=== PATIENT | male | born 1940 | race Caucasian/White ===

== ENCOUNTER → 2016-10-15 | Outpatient (CLI) | payer MEDICARE, OTHER ==
[~2016-10-15] MED LIST: AMLO10TA82 PO; ASP325T; ASPI-892 PO; ATEN50TA PO; ATR20T; BENZ200C25 PO; BISO1TAB39; CHOL200014 PO; CLOP75TA PO; FENO145T2; FENO160T PO; FENOFIBRATE PO; GLIM2TAB PO; INDO50CA PO; LOSA100T28 PO; METF-380 PO; MTF500T; NF-ALI300T PO; NFNEB10T PO; NYST1000; OLME40TA14; OMG1KC PO; ROSU5TAB PO; SITA1TAB6 PO; SMV20T PO; TERA5CAP10 PO; TRZS2T; WRF5T; tekturna
--- OUTSIDE RECORDS SUMMARY | 2016-10-15 14:27 | XMS REPORT | Continuity of Care Document ---
Author Author [facility] Organization [facility] Address Unknown Phone Unavailable Care Team Providers Care Silo Worker Name Role Phone STEPHEN PEACOCK MD PCP Insurance Providers Payer Name Policy Number Subscriber Name Relationship Wps Medicare [id number] Mariangel Felder 18 Self / Same As Patient [facility] [place] [id number] Mariangel Felder 18 Self / Same As Patient Advance Directives Directive Response Recorded Date/Time Advance Directives No 07/06/16 3:06pm Health Care Power of Sericulture Teacher Sharri FELDER 07/06/16 3:06pm Organ Donor No 07/06/16 3:06pm Resuscitation Status Full Code 07/06/16 3:06pm Problems No problem information available. Medications Current Home Medications Medication Dose Units Route Directions Days/Qty Instructions Start Date Sitagliptin Phos/Metformin Hcl 1 Each 50 - 1000 Mg Oral Daily Nebivolol Hcl 10 Mg 10 Mg Oral Daily 02/17/10 Clopidogrel Bisulfate 75 Mg 75 Mg Oral Daily 02/17/10 Aspirin 81 Mg 81 Mg Oral Daily 02/17/10 Fish Oil 1,000 Mg 1,000 Mg Oral Twice A Day 02/17/10 Indomethacin 50 Mg 50 Mg Oral As Needed as needed for Gout Pain 07/20 Metformin Hcl (Glucophage) 1,000 Mg 1,000 Mg Oral Bedtime 04/25/12 Amlodipine Besylate (Norvasc 10 Mg) 10 Mg 10 Mg Oral Daily 04/25/12 Rosuvastatin Calcium 5 Mg 5 Mg Oral Bedtime 07/02/16 Glimepiride 2 Mg 2 Mg Oral Daily 07/02/16 Cholecalciferol (Vitamin D3) 2,000 Unit 2,000 Unit Oral Daily Losartan Potassium 100 Mg 100 Mg Oral Daily 07/02/16 Past Home Medications Medication Directions Ordered Status Metformin Hcl (Glucophage) 500 Mg Tablet, 02/23/07 Discontinued Atorvastatin Calcium 20 Mg Tablet, 02/23/07 Discontinued [Tekturna] , 02/23/07 Discontinued Terazosin Hcl 2 Mg Tab, 02/23/07 Discontinued Olmesartan 40 Mg Tablet, 02/23/07 Discontinued Bisoprolol Fumarate/Hctz 1 Tab Tablet, 02/23/07 Discontinued Aspirin 325 Mg Tablet, 02/23/07 Discontinued Warfarin Sodium 5 Mg Tablet, 02/23/07 Discontinued Aliskiren Hemifumarate 300 Mg Tab, 300 Mg Oral As Needed 02/17/10 Discontinued Fenofibrate 145 Mg Tablet, 02/17/10 Discontinued Nystatin 5 Ml Susp, 02/17/10 Discontinued Terazosin Hcl 5 Mg Capsule, 5 Mg Oral Daily 02/17/10 Discontinued Simvastatin 20 Mg Tab, 20 Mg Oral Daily 04/25/12 Discontinued Fenofibrate 160 Mg Tablet, 160 Mg Oral Daily 04/25/12 Discontinued [Fenofibrate] , 180 Mg Oral Daily 05/11/12 Discontinued Benzonatate (Tessalon Perles) 200 Mg Capsule, 1 Each Oral Q8hr Prn 05/11/12 Discontinued Social History Social History Problem Response Recorded Date/Time Recent Foreign Travel No 07/06/2016 3:11pm Recent Infectious Disease Exposure No 07/06/2016 3:11pm Smoking Status Former Smoker 07/06/2016 3:09pm Type Used Cigarettes 07/06/2016 6:34pm Query Response Start Date Stop Date Smoking Status Former Smoker Hospital Discharge Instructions Patient Instructions Physician Instructions New, Converted or Re-Newed RX: Other Plan of Care/Instructions/FU: ffollow-up with Dr. Peacock to evaluate Cough Activity as Tolerated: Yes Discharge Diet: ADA Diet Care Plan Patient Instructions:: ffollow-up with Dr. Peacock to evaluateCough Plan of Care Discharge Date 07/06/16 6:30pm Instructions/Education Provided EGD-ESOPHAGOGASTRODUODENOSCOPY Prescriptions See Medication Section Functional Status No functional status results. Allergies, Adverse Reactions, Alerts Allergen Type Severity Reaction Status Last Updated Enalapril Allergy Unknown cough Active 07/02/16 Immunizations No immunization records. Vital Signs Acute Vital Signs Vital Response Date/Time Temperature (Fahrenheit) 97.9 degrees F (97.6 - 99.5) 07/06/2016 6:32pm Temperature (Calculated Celsius) 36.68790 degrees C (36.4 - 37.5) 07/06/2016 6:32pm Temperature Source Tympanic 07/06/2016 6:32pm Pulse Rate (adult) 60 bpm (60 - 90) 07/06/2016 6:32pm Respiratory Rate 16 bpm (12 - 24) 07/06/2016 6:32pm O2 Sat by Pulse Oximetry 92 % (88 - 100) 07/06/2016 6:32pm Blood Pressure 111/77 mm Hg 07/06/2016 6:32pm Pain Numeric Pain Scale 0-No Pain 07/06/2016 6:32pm Pain Intensity 0 07/06/2016 6:20pm Height (Feet) 5 feet 07/06/2016 3:12pm Height (Inches) 9.00 inches 07/06/2016 3:12pm Height (Calculated Centimeters) 175.493863 cm 07/06/2016 3:12pm Weight (Pounds) 245 pounds 07/06/2016 3:12pm Weight (Ounces) 0.0 oz 07/06/2016 3:12pm Weight (Calculated Grams) 349106.13 gm 07/06/2016 3:12pm Weight (Calculated Kilograms) 111.061216 kilograms 07/06/2016 3:12pm Calculated BMI 36.2 07/06/2016 3:12pm Results Laboratory Results Test Name Result Units Flags Reference Collection Date/Time Result Date/ Time Comments Glucometer 119 MG/DL H 70-110 07/06/2016 4:16pm 07/06/2016 4:37pm Procedures Procedure Status Date Provider(s) Esophagogastroduodenoscopy (EGD) Completed 07/06/16 ELBA SCHMITZ MD Encounters Encounter Location Arrival/Admit Date Discharge/Depart Date Attending Provider Departed [facility] 07/06/16 2:34pm 6:30pm ELBA SCHMITZ MD Departed Clinic [facility] 07/02/16 10:30am 07/02/16 11: 11am ELBA SCHMITZ MD
--- NOTE | 2016-10-18 15:44 | ECHOCARDIOGRAPHY REPORT ---
PROCEDURE PHYSICIAN: GIOVANI JUAREZ DATE OF PROCEDURE: 10/15/2016 TWO DIMENSIONAL ECHOCARDIOGRAM REPORT PRIMARY PHYSICIAN: OTHER PHYSICIAN: REFERRING PHYSICIAN: Dr. Peacock ORDERING PHYSICIAN: INDICATION FOR THE PROCEDURE: Coronary artery disease. MEASUREMENTS DERIVED VALUES LV DIAMETER (LAX) NORMALS NORMALS Diastolic 5.8 (3.6-5.2) Eject. Fract. 60% (60%+/-6%) Systolic (2.3-3.9) Diastolic Vol. % Shortening (0.22-0.42) Systolic Vol. Aortic Root IVS THICKNESS Diastolic 1.1 (0.6-1.1) LVPW THICKNESS Diastolic 1.1 (0.6-1.1) LA DIAMETER Systolic 4.6 (2.1-3.7) FINDINGS: 1. Technical quality is good. 2. The left ventricle is normal in size with normal contractility. Systolic function appeared to be normal. Estimated ejection fraction 60%. 3. The left atrium is mildly dilated. No clot or thrombus were seen within the left atrium. 4. The right atrium and right ventricle are normal in size. No clot or thrombus were seen within the right side. 5. Mitral valve is normal in morphology with mild mitral regurgitation noted by color Doppler flow. No mitral valve prolapse. No mitral valve stenosis. 6. Aortic valve is trileaflet with normal opening and closing pattern. No significant aortic stenosis or regurgitation was seen. 7. Tricuspid valve is normal in morphology with mild tricuspid regurgitation noted by color Doppler flow. Doppler across tricuspid valve estimated pulmonary artery pressure of 23+ right atrial pressure. 8. Pulmonic valve is functioning normally. 9. No pericardial effusion. IN CONCLUSION: 1. Normal left ventricular size and systolic function. Estimated ejection fraction 60%. 2. Mildly dilated left atrium. 3. Mild mitral and tricuspid regurgitation. 4. Estimated pulmonary artery pressure of 30 mmHg. Job ID: [id number] Dictated Date: 10/17/2016 08:40:46 Tracing Lathe Set Up Operator Date: 10/18/2016 15:41:34 / dev
== END ==
LOC: CARD 14:24
PROVIDERS: ATTEND Internal Medicine Cardiovascular Disease
DX: I25.10 Atherosclerotic heart disease of native coronary artery without angina pectoris (principal); I10 Essential (primary) hypertension; R06.02 Shortness of breath; R05 Cough
CPT/HCPCS: 93306

== ENCOUNTER → 2016-10-21 | Outpatient (CLI) | payer MEDICARE, OTHER ==
[~2016-10-21] VITALS: Ht 175.3 cm; Wt 113.4 kg
[~2016-10-21] MED LIST changes: +CATHETER FLUSH 10 ML SYR IV PRN; +REGADENOSON 0.4 MG/5 ML SYR (LEXISCAN) IV ONE
--- OUTSIDE RECORDS SUMMARY | 2016-10-21 07:26 | XMS REPORT | Continuity of Care Document ---
Author Author [facility] Organization [facility] Address Unknown Phone Unavailable Care Team Providers Care Pacs Administrator Name Role Phone STEPHEN PEACOCK MD PCP Insurance Providers Payer Name Policy Number Subscriber Name Relationship Wps Medicare [id number] Mariangel Felder 18 Self / Same As Patient [facility] [place] [id number] Mariangel Felder 18 Self / Same As Patient Advance Directives Directive Response Recorded Date/Time Advance Directives No 07/06/16 3:06pm Health Care Power of Hvac Project Manager Sharri FELDER 07/06/16 3:06pm Organ Donor No [...] - 99.5) 07/06/2016 6:32pm Temperature (Calculated Celsius) 36.90673 degrees C (36.4 - 37.5) 07/06/2016 6:32pm [...] 9.00 inches 07/06/2016 3:12pm Height (Calculated Centimeters) 175.463572 cm 07/06/2016 3:12pm Weight (Pounds) 245 pounds 07/06/2016 3:12pm Weight (Ounces) 0.0 oz 07/06/2016 3:12pm Weight (Calculated Grams) 288721.13 gm 07/06/2016 3:12pm Weight (Calculated Kilograms) 111.491545 kilograms 07/06/2016 3:12pm Calculated BMI 36.2 07/06/2016 3:12pm Results Laboratory Results Test Name Result Units Flags Reference Collection Date/Time Result Date/ Time Comments Glucometer 119 MG/DL H 70-110 07/06/2016 4:16pm 07/06/2016 4:37pm Procedures Procedure Status Date Provider(s) Esophagogastroduodenoscopy (EGD) Completed 07/06/16 ELBA SCHMITZ MD Encounters Encounter Location Arrival/Admit Date Discharge/Depart Date Attending Provider Departed [facility] 07/06/16 2:34pm 6:30pm ELBA SCHMITZ MD Departed Clinic [facility] 07/02/16 10:30am 07/02/16 11: 11am ELBA SCHMITZ MD
[2016-10-21 09:01] VITALS: BP 144/59
[2016-10-21 09:04] VITALS: BP 117/83
--- NOTE | 2016-10-22 08:44 | STRESS TEST ---
PROCEDURE PHYSICIAN: GIOVANI JUAREZ DATE OF PROCEDURE: 10/21/2016 LEXISCAN MYOVIEW STRESS TEST REPORT: REFERRING PHYSICIAN: Dr. Peacock INDICATION: Coronary artery disease. BASELINE HEART RATE: 60 BASELINE BLOOD PRESSURE: 144/59 BASELINE EKG: Sinus rhythm with poor R wave progression in anterior leads. IN SUMMARY: The patient was injected with 10.61 mCi of technetium 99 Myoview and the resting images were obtained. Then the patient received 0.4 mg of Lexiscan followed by 31 mCi of technetium 99 Myoview. Throughout the test, there were no EKG changes. The resting and stress images were reviewed and compared in the short axis, horizontal long axis, and vertical long axis views. Review of the images showed diaphragmatic attenuation affecting the quality of the images. Mild decreased uptake at the inferoapical segment and lateral segment of the inferoapical wall. SSS is 4, SDS 4, TID value 1.08. On the gated images, the left ventricle appeared to be normal size with normal contractility. Calculated ejection fraction 58%. IN CONCLUSION: 1. The patient tolerated Lexiscan well. 2. Diaphragmatic attenuation with typical male pattern. No significant ischemia or infarction on SPECT images. 3. Normal left ventricular size with normal contractility. Calculated ejection fraction 58%. Job ID: [id number] Dictated Date: 10/21/2016 16:10:44 Encoding Machine Operator Date: 10/22/2016 08:40:44 / dev
== END ==
LOC: CARD 07:23
PROVIDERS: ATTEND Internal Medicine Cardiovascular Disease
DX: I25.10 Atherosclerotic heart disease of native coronary artery without angina pectoris (principal); I10 Essential (primary) hypertension; R06.02 Shortness of breath; R05 Cough
CPT/HCPCS: 78452; 93017

== ENCOUNTER 2016-10-28 06:40 | Day surgery (SDC) | payer MEDICARE, OTHER ==
[~2016-10-28] VITALS: Ht 177.8 cm; Wt 106.6 kg
[2016-10-28] VITALS (14 sets, daily range): BP systolic 122–148; BP diastolic 68–88
[~2016-10-28 06:40] MED LIST changes: -ATEN50TA PO; -CATHETER FLUSH 10 ML SYR IV PRN; -REGADENOSON 0.4 MG/5 ML SYR (LEXISCAN) IV ONE
--- OUTSIDE RECORDS SUMMARY | 2016-10-28 06:44 | XMS REPORT | Continuity of Care Document ---
Author Author [facility] Organization [facility] Address Unknown Phone Unavailable Care Team Providers Care Piggyback Clerk Name Role Phone STEPHEN PEACOCK MD PCP Insurance Providers Payer Name Policy Number Subscriber Name Relationship Wps Medicare [id number] Mariangel Felder 18 Self / Same As Patient [facility] [place] [id number] Mariangel Felder 18 Self / Same As Patient Advance Directives Directive Response Recorded Date/Time Advance Directives No 07/06/16 3:06pm Health Care Power of Batch Unloader Sharri FELDER 07/06/16 3:06pm Organ Donor No [...] - 99.5) 07/06/2016 6:32pm Temperature (Calculated Celsius) 36.82996 degrees C (36.4 - 37.5) 07/06/2016 6:32pm [...] 9.00 inches 07/06/2016 3:12pm Height (Calculated Centimeters) 175.084330 cm 07/06/2016 3:12pm Weight (Pounds) 245 pounds 07/06/2016 3:12pm Weight (Ounces) 0.0 oz 07/06/2016 3:12pm Weight (Calculated Grams) 813990.13 gm 07/06/2016 3:12pm Weight (Calculated Kilograms) 111.681650 kilograms 07/06/2016 3:12pm Calculated BMI 36.2 07/06/2016 3:12pm Results Laboratory Results Test Name Result Units Flags Reference Collection Date/Time Result Date/ Time Comments Glucometer 119 MG/DL H 70-110 07/06/2016 4:16pm 07/06/2016 4:37pm Procedures Procedure Status Date Provider(s) Esophagogastroduodenoscopy (EGD) Completed 07/06/16 ELBA SCHMITZ MD Encounters Encounter Location Arrival/Admit Date Discharge/Depart Date Attending Provider Departed [facility] 07/06/16 2:34pm 6:30pm ELBA SCHMITZ MD Departed Clinic [facility] 07/02/16 10:30am 07/02/16 11: 11am ELBA SCHMITZ MD
--- OUTSIDE RECORDS SUMMARY | 2016-10-28 06:44 | XMS REPORT | Continuity of Care Document ---
Author Author [facility] Organization [facility] Address Unknown Phone Unavailable Care Team Providers Care Loan Documents Closer Name Role Phone STEPHEN PEACOCK MD PCP Insurance Providers Payer Name Policy Number Subscriber Name Relationship Wps Medicare [id number] Mariangel Felder 18 Self / Same As Patient [facility] [place] [id number] Mariangel Felder 18 Self / Same As Patient Advance Directives Directive Response Recorded Date/Time Advance Directives No 07/06/16 3:06pm Health Care Power of Herpetologist Sharri FELDER 07/06/16 3:06pm Organ Donor No [...] - 99.5) 07/06/2016 6:32pm Temperature (Calculated Celsius) 36.15938 degrees C (36.4 - 37.5) 07/06/2016 6:32pm [...] 9.00 inches 07/06/2016 3:12pm Height (Calculated Centimeters) 175.552802 cm 07/06/2016 3:12pm Weight (Pounds) 245 pounds 07/06/2016 3:12pm Weight (Ounces) 0.0 oz 07/06/2016 3:12pm Weight (Calculated Grams) 753409.13 gm 07/06/2016 3:12pm Weight (Calculated Kilograms) 111.808613 kilograms 07/06/2016 3:12pm Calculated BMI 36.2 07/06/2016 3:12pm Results Laboratory Results Test Name Result Units Flags Reference Collection Date/Time Result Date/ Time Comments Glucometer 119 MG/DL H 70-110 07/06/2016 4:16pm 07/06/2016 4:37pm Procedures Procedure Status Date Provider(s) Esophagogastroduodenoscopy (EGD) Completed 07/06/16 ELBA SCHMITZ MD Encounters Encounter Location Arrival/Admit Date Discharge/Depart Date Attending Provider Departed [facility] 07/06/16 2:34pm 6:30pm ELBA SCHMITZ MD Departed Clinic [facility] 07/02/16 10:30am 07/02/16 11: 11am ELBA SCHMITZ MD
[2016-10-28] MEDS ORDERED: LIDOCAINE 1% INJ 20 ML (XYLOCAINE) VIAL ONE (06:48)
[2016-10-28] MEDS ORDERED: HEParin (CATH LAB) 2,000 ML IV ONE (06:48)
[2016-10-28] MEDS ORDERED: NS IV 1000 ML 1,000 ML ONE (06:48)
[2016-10-28] MEDS ORDERED: NS IV 1000 ML 1,000 ML IV SCH (06:59)
[2016-10-28 07:22] LABS: MEAN PLATELET VOLUME 9.3 FL (7.4-10.4); RED BLOOD COUNT 4.57 10^6/uL (4.35-5.85); RED CELL DISTRIBUTION WIDTH 13.2 % (10.0-14.5); WHITE BLOOD COUNT 8.1 10^3/uL (4.3-11.0)
[2016-10-28] MEDS ORDERED: ATEN50TA PO (07:36)
[2016-10-28 07:42] LABS: ALBUMIN 4.1 G/DL (3.2-4.5); BILIRUBIN,TOTAL 0.5 MG/DL (0.1-1.0); CALCIUM 9.3 MG/DL (8.5-10.1); CREATININE SERUM 1.88 MG/DL (0.60-1.30); POTASSIUM 4.6 MMOL/L (3.6-5.0); TOTAL PROTEIN 7.6 G/DL (6.4-8.2)
--- NOTE | 2016-10-28 07:44 | Diagnostic Imaging Report ---
INDICATION: Renovascular hypertension. Portable chest at 07:32 a.m. FINDINGS: Heart size and pulmonary vascularity are normal. Lungs are clear. There are no effusions or pneumothoraces. IMPRESSION: Negative chest. Dictated by: Dictated on workstation # [id number]
[2016-10-28] MEDS ORDERED: fentaNYL INJECTION 100 MCG/2 ML AMP ONE (07:54)
[2016-10-28] MEDS ORDERED: MIDAZOLAM 5 MG/5 ML (VERSED) VIAL ONE (07:54)
--- NOTE | 2016-10-28 08:17 | Cardiac Procedure Note-CS/ASA ---
Pre-Procedure Note Pre-Op Procedure Note H&P Reviewed The H&P was reviewed, patient examined and no changes noted. Date H&P Reviewed: Oct 28, 2016 Time H&P Reviewed: 08:17 Conscious Sedation Pre-Proced Time Reviewed: 08:17 ASA Class: 3 Airway Mallampati Classification: ([place] appropriate class) I. II. III, IV Lungs Heart ASA score ASA 1: a normal healthy patient ASA 2: a patient with a mild systemic disease (mid diabetes, controlled hypertension, obesity x ASA 3: a patient with a severe systemic disease that limits activity (angina , COPD, prior Myocardial infarction) ASA 4: a patient with an incapacitating disease that is a constant threat to life (CHF, renal failure) ASA 5: a moribund patient not expected to survive 24 hrs. (ruptured aneurysm) ASA 6: a declared brain patient whose organs are being harvested. For emergent operations, add the letter E after the classification Grade 3 Sedation Plan: Analgesia, Amnesia, Plan communicated to team members, Discussed options with patient/fam, Discussed risks with patient/fam Note The patient is an appropriate candidate to undergo the planned procedure, sedation, and anesthesia. The patient immediately re-assessed prior to indication. GIOVANI JUAREZ MD Oct 28, 2016 08:17
[2016-10-28] MEDS ORDERED: HEParin 1000 UNIT/ML (10ML VIAL) FOR BOLUS ONE (08:30)
[2016-10-28] MEDS ORDERED: ASPIRIN 325 MG (5 GR) TABLET ONE (09:04)
[2016-10-28] MEDS ORDERED: CLOPIDOGREL 300 MG (PLAVIX) TABLET PO ONE (09:04)
[2016-10-28] MEDS ORDERED: INDOMETHACIN 50 MG PO PRN (09:15)
[2016-10-28] MEDS ORDERED: PATIENT MAY USE OWN MEDS, ALL PO SCH (09:15)
[2016-10-28] MEDS: NS IV 1000 ML 1,000 ML IV SCH ×2 (09:30→13:39)
--- NOTE | 2016-10-28 13:25 | CARDIAC CATHETERIZATION ---
PROCEDURE PHYSICIAN: GIOVANI JUAREZ DATE OF PROCEDURE: 10/28/2016 REFERRING PHYSICIAN: Dr. Amarilys Peacock BRIEF HISTORY: Mr. Herbert is a 76-year-old gentleman with a history of coronary artery disease, abdominal aortic aneurysm, severe hypertension. He had a CT angiogram of the abdominal aorta, which suggests 70 to 80% left renal artery stenosis. He was scheduled for a renal angiogram, possible angioplasty. PROCEDURE NOTE: After explaining the procedure to the patient, all pros and cons were explained. All questions were answered. The patient signed a consent, then he was placed on the cardiac catheterization laboratory. The right groin was prepped in a sterile fashion. Local anesthesia applied to right groin. 6-Khmer sheath was placed in the right femoral artery. I started with [facility] guide and advanced to the left renal artery, angiogram was done. Then it was turned to the right renal artery. Intubated the right renal artery and angiogram was done. The right renal artery has mild disease. The left renal artery has eccentric lesion of 70 to 80% stenosis. I decided with giving the patient 6000 units of heparin, then BMW wire was advanced. Then a Proctor balloon 5 x 20 x 150, advanced to the left renal artery, inflated to 5.0. After multiple inflations, there was a sliding of balloon during inflation after achieving adequate inflation. The artery showed improvement. I decided to proceed with placement of bare-metal stent. I used Express SD 6 x 14 x 150 placed carefully at the ostium of the left renal artery inflated. After inflating the balloon the stent had slid slightly deeper into the left renal artery; still had covering partially the area of the lesion. I reintroduced the balloon and inflated to 6.1 mm at the ostium of the left renal artery. Angiogram showed excellent results. At the end of the procedure, sheath was removed. Mynx device deployed. Hemostasis achieved. FINDINGS: 1. Right renal artery has mild disease, nonobstructive disease. 2. Left renal artery has eccentric plaque of 70 to 80% stenosis. Successful balloon angioplasty then deployment of Express SD stent 6 x 14 x 150. The stent had slid slightly deeper into the left renal artery still partially covering the lesion. Balloon angioplasty was performed the ostium of the left renal artery. Angiogram showed excellent results with no residual stenosis. CONCLUSION: 1. Severe 70 to 80% left renal artery stenosis with eccentric lesion. Successful balloon angioplasty then stent deployment using 6 x 4 x 15 Express SD stent with excellent results. 2. Mild right renal artery stenosis, nonobstructive disease. DISCUSSION AND RECOMMENDATION: The patient will continue on aspirin and Plavix continue on current medication and monitor renal function. Job ID: [id number] Dictated Date: 10/28/2016 09:15:36 Inspector Set Up And Lay Out Date: 10/28/2016 13:09:28 / sindhu PAL
--- NOTE | 2016-10-28 13:29 | DISCHARGE SUMMARY ---
PROCEDURE PHYSICIAN: GIOVANI JUAREZ DATE OF PROCEDURE: 10/28/2016 REFERRING PHYSICIAN: Dr. Amarilys Peacock BRIEF HISTORY: Mr. Herbert is a 76-year-old gentleman with a history of coronary artery disease, abdominal aortic aneurysm, severe hypertension. He had a CT angiogram of the abdominal aorta, which suggests 70 to 80% left renal artery stenosis. He was scheduled for a renal angiogram, possible angioplasty. PROCEDURE NOTE: After explaining the procedure to the patient, all pros and cons were explained. All questions were answered. The patient signed a consent, then he was placed on the cardiac catheterization laboratory. The right groin was prepped in a sterile fashion. Local anesthesia applied to right groin. 6-Japanese sheath was placed in the right femoral artery. I started with [facility] guide and advanced to the left renal artery, angiogram was done. Then it was turned to the right renal artery. Intubated the right renal artery and angiogram was done. The right renal artery has mild disease. The left renal artery has eccentric lesion of 70 to 80% stenosis. I decided with giving the patient 6000 units of heparin, then BMW wire was advanced. Then a Proctor balloon 5 x 20 x 150, advanced to the left renal artery, inflated to 5.0. After multiple inflations, there was a sliding of balloon during inflation after achieving adequate inflation. The artery showed improvement. I decided to proceed with placement of bare-metal stent. I used Express SD 6 x 14 x 150 placed carefully at the ostium of the left renal artery inflated. After inflating the balloon the stent had slid slightly deeper into the left renal artery; still had covering partially the area of the lesion. I reintroduced the balloon and inflated to 6.1 mm at the ostium of the left renal artery. Angiogram showed excellent results. At the end of the procedure, sheath was removed. Mynx device deployed. Hemostasis achieved. FINDINGS: 1. Right renal artery has mild disease, nonobstructive disease. 2. Left renal artery has eccentric plaque of 70 to 80% stenosis. Successful balloon angioplasty then deployment of Express SD stent 6 x 14 x 150. The stent had slid slightly deeper into the left renal artery still partially covering the lesion. Balloon angioplasty was performed the ostium of the left renal artery. Angiogram showed excellent results with no residual stenosis. CONCLUSION: 1. Severe 70 to 80% left renal artery stenosis with eccentric lesion. Successful balloon angioplasty then stent deployment using 6 x 4 x 15 Express SD stent with excellent results. 2. Mild right renal artery stenosis, nonobstructive disease. DISCUSSION AND RECOMMENDATION: The patient will continue on aspirin and Plavix continue on current medication and monitor renal function. FINAL DIAGNOSIS: 1. Coronary artery disease. 2. Renal artery stenosis. 3. Hypertension. 4. Abdominal aortic aneurysm. Job ID: [id number] Dictated Date: 10/28/2016 09:15:36 Collar Fuser Date: 10/28/2016 13:24:18/sindhu
[2016-10-28] MEDS ORDERED: ROSUVASTATIN 5 MG (CRESTOR) TABLET PO SCH (21:00)
[2016-10-28] MEDS ORDERED: OMEGA 3 (FISH OIL) 1000 MG CAP PO SCH (21:00)
[2016-10-29] VITALS: BP 115/74
[2016-10-29 04:00] VITALS: BP 126/68
[2016-10-29] MEDS: NS IV 1000 ML 1,000 ML IV SCH (04:40)
[2016-10-29 04:49] LABS: MEAN PLATELET VOLUME 9.4 FL (7.4-10.4); RED BLOOD COUNT 4.29 10^6/uL (4.35-5.85); RED CELL DISTRIBUTION WIDTH 13.1 % (10.0-14.5)
[2016-10-29 05:00] LABS: CALCIUM 8.8 MG/DL (8.5-10.1); CREATININE SERUM 1.55 MG/DL (0.60-1.30); POTASSIUM 4.3 MMOL/L (3.6-5.0)
[2016-10-29] MEDS ORDERED: GLIMEPIRIDE 2 MG (AMARYL) TAB PO SCH (06:30)
[2016-10-29 08:00] VITALS: BP 118/62
--- NOTE | 2016-10-29 08:17 | Discharge Inst-Post CATH ---
Discharge Inst-CATH Post Cardiac Cath D/C Inst Follow Up/Plan Hold metformin for [address] Johnston's office in 2-4 weeks CARDIAC CATH DISCHARGE INSTRUCTIONS *Hold Metformin for 48 hours post heart cath. ACTIVITY * Go Home directly and rest. * Limit activity of the leg (or wrist if it was used) for 7 days including aerobics, swimming, jogging, bicycling, etc. * Restrict stair-climbing for 7 days if possible, if not, climb up with your non -cath leg, then bring together on the same step. * Avoid lifting, pushing, pulling or excessive movement of the affected extremity for 7 days. * Customary sexual activity may be resumed after 2 days-use caution not to use a position that strains or causes pain to the affected extremity. * No driving for 24 hours. * NO SMOKING. * Avoid straining for bowel movements for 7 days. * Gentle walking on level ground is allowed. * Returning to work will depend on the type of procedure and the results. Your doctor will discuss this with you. CALL YOUR DOCTOR FOR ANY OF THE FOLLOWING: *If bleeding from the puncture site occurs- Apply gentle pressure to site with clean cloth and call your doctor or EMS. * If a knot or lump forms under the skin, increases in size, or causes pain. * If bruising appears to be worsening or moving further down your leg instead of disappearing. * Temperature above 101 F. CARE OF YOUR GROIN INCISION; * Bruising or purple discoloration of the skin near the puncture site is common. * You may shower only, no bathtub bathing for 5 days. Be careful to avoid slipping as your leg may feel stiff. * If a closure device was used on your femoral artery, please see the attached guide regarding care of the device and your leg. * REMOVE the dressing from your groin the next day after your procedure in the shower. CARE OF YOUR WRIST INCISION; * Bruising or purple discoloration of the skin near the puncture site is common. * You may shower. * DO NOT submerge wrist. * Remove dressing in 24 hours. GIOVANI JOHNSTON MD Oct 29, 2016 08:17
--- NOTE | 2016-10-29 08:18 | Cardiology Progress Note ---
Subjective Subjective/Events-last exam Patient is feeling well, groin is healing well, blood pressure under good control Review of Systems General: No Chills, No Night Sweats, No Fatigue, No Malaise, No Appetite, No Other HEENT: No Head Aches, No Visual Changes, No Eye Pain, No Ear Pain, No Dysphasia , No Sinus Congestion, No Post Nasal Drip, No Sore Throat, No Other Pulmonary: No Dyspnea, No Cough, No Pleuritic Chest Pain, No Other Cardiovascular: No: Chest Pain, Edema, Lt Headedness, Orthopnea, Other, Palpitations, Paroxysmal Noc. Dyspnea Objective-Cardiology Exam Last Set of Vital Signs Vital Signs 10/29/16 04:00 Temp 99.1 Pulse 60 Resp 18 B/P 126/68 Pulse Ox 94 O2 Delivery Room Air Capillary Refill : Less Than 3 Seconds I&O Intake and Output 10/29/16 00:00 Intake Total 2650 ml Output Total 475 ml Balance 2175 ml Intake Oral 650 ml IV Total 2000 ml Output Urine Total 475 ml # Voids 2 General: Alert, Oriented X3, Cooperative HEENT: Atraumatic, PERRLA Neck: Supple, No JVD, No Thyromegaly Lungs: Clear to Auscultation, Normal Air Movement Heart: Regular Rate, Normal S1, Normal S2, No Murmurs Abdomen: Normal Bowel Sounds, Soft, No Tenderness, No Hepatosplenomegaly, No Masses Extremities: No Clubbing, No Cyanosis, No Edema, Normal Pulses, No Tenderness/ Swelling Skin: No Rashes, No Breakdown, No Significant Lesion Neuro: Normal Gait, Normal Speech, Strength at 5/5 X4 Ext, Normal Tone, Sensation Intact Psych/Mental Status: Mental Status NL, Mood NL Results Lab Laboratory Tests 10/29/16 04:12 A/P-Cardiology Admission Diagnosis Renal artery stenosis Hypertension Abdominal aortic aneurysm Coronary artery disease Assessment/Plan Renal artery stenosis status post renal antiplastic in-stent Hypertension, better control Abdominal aortic aneurysm, continue to monitor Coronary artery disease Chronic renal insufficiency, any functions are slightly better Diabetes mellitus GIOVANI JUAREZ MD Oct 29, 2016 08:18
[2016-10-29] MEDS ORDERED: amLODIPine 10 MG (NORVASC) TAB PO SCH (09:00)
[2016-10-29] MEDS ORDERED: ASPIRIN E.C. 81 MG (ECOTRIN) TAB PO SCH ×2 (09:00)
[2016-10-29] MEDS ORDERED: Cholecalciferol (Vitamin D3) 2,000 UNIT PO SCH (09:00)
[2016-10-29] MEDS ORDERED: Losartan Potassium 100 MG PO SCH (09:00)
[2016-10-29] MEDS ORDERED: ATENOLOL 50 MG (TENORMIN) TAB PO SCH (09:00)
[2016-10-29] MEDS ORDERED: CLOPIDOGREL 75 MG (PLAVIX) TABLET PO SCH ×2 (09:00)
== END 2016-10-29 09:30 | disposition home or self-care (01) ==
LOC: CATH 06:40 → ICU 09:30 → CATH 10-29 09:30
PROVIDERS: ATTEND Internal Medicine Cardiovascular Disease
DX: I70.1 Atherosclerosis of renal artery (principal); I71.4 Abdominal aortic aneurysm, without rupture; I10 Essential (primary) hypertension; I25.10 Atherosclerotic heart disease of native coronary artery without angina pectoris; E11.9 Type 2 diabetes mellitus without complications; Q21.1 Atrial septal defect; J44.9 Chronic obstructive pulmonary disease, unspecified; G47.33 Obstructive sleep apnea (adult) (pediatric); Z79.899 Other long term (current) drug therapy; Z86.73 Personal history of transient ischemic attack (TIA), and cerebral infarction without residual deficits
CPT/HCPCS: 36252; 36415; 37236; 71010; 80048; 80053; 80061; 85027; 85610; 85730; 87081; 93005

== ENCOUNTER → 2017-04-28 | Outpatient (CLI) | payer MEDICARE, OTHER ==
[~2017-04-28] MED LIST changes: +ATEN50TA PO; +BARIUM SUSPENSION 105% (LIQUID POLIBAR PLUS) 240 ML/DOSE PO ONE; +BARIUM SUSPENSION 60% (LIQUID EZ PAQUE) 240 ML DOSE PO ONE
--- NOTE | 2017-04-29 14:28 | RADIOLOGY REPORT ---
NAME: NIKIA FELDER [facility] REC#: [id number] PT STATUS: REG CLI : 1940 PHYSICIAN: STEPHEN REYES MD ADMIT DATE: 04/28/17/RAD CORRECTED Signed Date of Exam:04/28/17 CHEST 1 VIEW, AP/PA ONLY EXAMINATION: Equipment Inspector for Barium swallow study. INDICATION: Dysphagia. Patient describes choking with liquids in the throat area. FINDINGS: PA chest radiograph was performed and demonstrated interstitial thickening that appears chronic with no focal infiltrate. Prominent right pericardial fat pad is suggested similar to the 10/28/2016 exam. The heart size is mildly enlarged. No effusion or pneumothorax. At this time, based on patient focusing complaints in the throat area, a barium swallow was not performed to avoid the risk of aspiration and a modified barium swallow is suggested. IMPRESSION: Prominent cardiac size. No acute process. Dictated by: Dictated on workstation # [id number] Dict: 04/28/17 1126 Trans: 04/29/17 1148 [facility] [id number] Interpreted by: RAJI HAMMOND MD Electronically signed by: RAJI HAMMOND MD 04/29/17 1148 MTDD
== END ==
LOC: RAD 10:02
PROVIDERS: ATTEND Family Medicine
DX: R13.12 Dysphagia, oropharyngeal phase (principal); I51.7 Cardiomegaly
CPT/HCPCS: 71010; 74220

== ENCOUNTER → 2017-04-30 | Outpatient (CLI) | payer MEDICARE, OTHER ==
[~2017-04-30] MED LIST changes: -BARIUM SUSPENSION 105% (LIQUID POLIBAR PLUS) 240 ML/DOSE PO ONE; -BARIUM SUSPENSION 60% (LIQUID EZ PAQUE) 240 ML DOSE PO ONE
--- NOTE | 2017-04-30 11:54 | Diagnostic Imaging Report ---
EXAMINATION: Modified barium swallow. Indication: Dysphagia Different consistencies of fluid and food was given mixed with barium and swallowing was visualized under fluoroscopy. FLUOROSCOPY TIME: 46 seconds FINDINGS: No aspiration seen. IMPRESSION: No aspiration seen. Please refer to speech therapist's report for additional details . Dictated by: Dictated on workstation # [id number]
== END ==
LOC: RAD 10:10
PROVIDERS: ATTEND Family Medicine
DX: R13.12 Dysphagia, oropharyngeal phase (principal)
CPT/HCPCS: 74230

== ENCOUNTER → 2018-03-18 | Outpatient (CLI) | payer MEDICARE, OTHER ==
--- NOTE | 2018-03-18 12:47 | Diagnostic Imaging Report ---
EXAMINATION: Pelvic ultrasound limited. INDICATION: Urinary retention. FINDINGS: There are no prior pelvic ultrasound examinations available for comparison. This exam was done to evaluate the bladder for urinary retention following voiding. The bladder is only partially distended by urine and consequently not optimally evaluated. There is no obvious bladder abnormality evident. The prevoid volume was 99.1 mL. Following voiding, there was only 5.9 mL of urine still present within the bladder. IMPRESSION: 1. There is only a small amount of residual urine within the bladder following voiding. 2. The bladder is not well distended and consequently not optimally evaluated. There is no obvious bladder abnormality evident. Dictated by: Dictated on workstation # [id number]
--- NOTE | 2018-03-18 13:09 | Diagnostic Imaging Report ---
EXAMINATION: Abdominal Doppler ultrasound. INDICATION: Chronic kidney disease, renal artery stenosis. FINDINGS: There are no previous abdominal Doppler examinations available for comparison. The CTA abdomen exam of 09/24/2016 did note an infrarenal abdominal aorta measuring 3.8 cm in maximum diameter. On this study, the infrarenal aneurysm is again visualized and now measures 3.2 x 3.1 cm. There is no periaortic fluid collection to suggest an acute abnormality. The previous study also indicated a focal stenosis involving the left renal artery. The stenosis was estimated to be in the 70-80% range. Reportedly in the interval since the prior exam, a stent has been inserted in the left renal artery. Both kidneys are identified. The right kidney measures 10.1 x 4.9 x 4.4 cm while the left kidney is estimated to be 11.7 x 4.9 x 4.7 cm. There is no evidence for a solid renal mass or for hydronephrosis of either kidney. The renal cortices are normal in thickness and echogenicity. There is no shadowing from the kidneys to suggest nephrolithiasis. The proximal portions of both renal arteries are obscured; however, the renal arteries where visualized show no evidence for a hemodynamically significant stenosis. The bladder is not imaged during the course of this exam. IMPRESSION: 1. There is no evidence for a solid renal mass or for an acute abnormality of either kidney. 2. The proximal renal arteries are obscured bilaterally, but the renal arteries where visualized are unremarkable for a hemodynamically significant stenosis. If further evaluation of the proximal renal arteries is desired, then a repeat CTA abdomen exam should be obtained. 3. There is mild aneurysmal dilatation of the infrarenal abdominal aorta. The measurements are not as prominent as noted on the previous CTA abdomen exam. A more objective evaluation of the aneurysm of the aorta could also be obtained from a follow-up CTA abdomen exam. 4. The bladder was not imaged during the course of this study. Dictated by: Dictated on workstation # [id number]
== END ==
LOC: RAD 08:13
PROVIDERS: ATTEND Internal Medicine Nephrology
DX: I71.4 Abdominal aortic aneurysm, without rupture (principal); I70.1 Atherosclerosis of renal artery; R33.9 Retention of urine, unspecified; N18.3 Chronic kidney disease, stage 3 (moderate); M10.9 Gout, unspecified; I12.9 Hypertensive chronic kidney disease with stage 1 through stage 4 chronic kidney disease, or unspecified chronic kidney disease; E11.9 Type 2 diabetes mellitus without complications
CPT/HCPCS: 76857; 93975

== ENCOUNTER → 2018-06-17 | Outpatient (CLI) | payer MEDICARE, OTHER ==
[~2018-06-17] MED LIST changes: -CHOL200014 PO; +CHOL200085 PO; -LOSA100T28 PO; +LOSA100T8 PO
--- NOTE | 2018-06-17 13:55 | Diagnostic Imaging Report ---
PROCEDURE: US DOPPLER ABD/COMPLETE TECHNIQUE: Multiple real-time grayscale images were obtained over the kidneys in various projections. Duplex evaluation of renal arteries was also attempted. INDICATION: Renal artery stenosis. FINDINGS: The right kidney measures 9.9 x 5.2 x 4.5 cm, and the left kidney measures 10.9 x 5.3 x 5.2 cm. Cortical thickness and echogenicity appear normal. No calculi are seen. There is no hydronephrosis. Bowel gas does obscure the proximal portions of the renal arteries. The mid right renal artery was also obscured. The distal right renal artery demonstrates normal velocity. Mid and distal left renal artery also demonstrate normal velocity. Renal artery/aorta ratios are normal. Duplex waveforms are unremarkable. Distal abdominal aortic aneurysm measures approximately 3.7 cm in AP diameter, similar to the CT angiogram of the abdomen from 09/24/2016. No periaortic fluid collection is seen. IMPRESSION: 1. Limited study due to bowel gas. No definite findings to suggest renal artery stenosis are identified. 2. Stable infrarenal abdominal aortic aneurysm. Dictated by: Dictated on workstation # [id number]
== END ==
LOC: RAD 09:22
PROVIDERS: ATTEND Internal Medicine Cardiovascular Disease
DX: I71.4 Abdominal aortic aneurysm, without rupture (principal); I10 Essential (primary) hypertension; E78.2 Mixed hyperlipidemia; I70.1 Atherosclerosis of renal artery
CPT/HCPCS: 93975

== ENCOUNTER → 2019-10-30 | Outpatient (CLI) | payer MEDICARE, OTHER ==
[~2019-10-30] MED LIST changes: +CHOL200014 PO; -CHOL200085 PO; -GLIM2TAB PO; +GLIM2TAB2 PO; +LOSA100T57 PO; -LOSA100T8 PO
--- NOTE | 2019-10-30 14:54 | Diagnostic Imaging Report ---
INDICATION: Cough and congestion. EXAMINATION: PA and lateral chest. FINDINGS: The heart size and pulmonary vascularity are normal. The lungs are clear. There are no effusions or pneumothoraces. IMPRESSION: Negative chest. Dictated by: Dictated on workstation # [id number]
== END ==
LOC: RAD 13:40
PROVIDERS: ATTEND Nurse Practitioner Family
DX: J18.9 Pneumonia, unspecified organism (principal)
CPT/HCPCS: 71046

== ENCOUNTER → 2019-11-21 | Outpatient (CLI) | payer MEDICARE, OTHER ==
--- NOTE | 2019-11-21 12:58 | Diagnostic Imaging Report ---
INDICATION: Cough. Comparison made with prior examination from 10/30/2019. FINDINGS: The heart size, mediastinal configuration, and pulmonary vascularity are within normal limits. There is no pleural effusion, pneumothorax, or pneumonia. The osseous structures are unremarkable. IMPRESSION: No acute cardiopulmonary abnormality. Dictated by: Dictated on workstation # [id number]
== END ==
LOC: RAD 12:40
PROVIDERS: ATTEND Nurse Practitioner Family
DX: R05 Cough (principal)
CPT/HCPCS: 71046

== ENCOUNTER → 2021-03-21 | Outpatient (CLI) | payer MEDICARE, OTHER ==
[~2021-03-21] MED LIST changes: -GLIM2TAB2 PO; +GLIM2TAB4 PO
--- NOTE | 2021-03-21 11:35 | Diagnostic Imaging Report ---
INDICATION: ABDOMINAL AORTIC ANEURYSM WO RUPTURE TECHNIQUE: Grayscale sonographic images of the abdominal aorta. CORRELATION STUDY: 02/22/2015 FINDINGS: Previous CT imaging demonstrated infrarenal abdominal aortic aneurysm measuring up to 4 cm. Abdominal Aorta Proximal: Not well visualized, maximum dimension at 2.1 cm Mid: 4.0 x 4.0 cm Distal: 3.5 x 3.8 cm Common Iliac Arteries Right FAITH: Not well visualized Left FAITH: Not well visualized IMPRESSION: 1. Infrarenal abdominal aortic aneurysm, current maximum dimension approximately 4 cm. Generally stable in size from prior imaging Dictated by: Dictated on workstation # [id number]
== END ==
LOC: RAD 10:00
PROVIDERS: ATTEND Internal Medicine Cardiovascular Disease
DX: I71.4 Abdominal aortic aneurysm, without rupture (principal)
CPT/HCPCS: 76775

== ENCOUNTER → 2021-04-28 | Outpatient (CLI) | payer MEDICARE, OTHER ==
--- NOTE | 2021-04-28 15:46 | Diagnostic Imaging Report ---
INDICATION: Abnormal auscultation of breath sounds. EXAM: PA and lateral chest FINDINGS: Heart size and pulmonary vascularity are normal. There are no consolidating alveolar infiltrates. There are no effusions or pneumothoraces. IMPRESSION: No acute abnormality is seen in the chest. Dictated by: Dictated on workstation # [id number]
== END ==
LOC: RAD 15:15
PROVIDERS: ATTEND Nurse Practitioner Family
DX: R05 Cough (principal)
CPT/HCPCS: 71046

== ENCOUNTER → 2021-05-02 | Outpatient (CLI) | payer MEDICARE, OTHER ==
--- NOTE | 2021-05-02 16:40 | Diagnostic Imaging Report ---
EXAMINATION: CT chest wo. TECHNIQUE: Multiple contiguous axial images were obtained through the chest without the use of intravenous contrast. All CT scans use one or more of the following dose optimizing techniques: automated exposure control, MA and/or KvP adjustment based on a patient size and exam type, or iterative reconstruction. INDICATION: Cough and shortness of breath. COMPARISON: CT chest from 10/05/2016. FINDINGS: Lungs and airway: No endoluminal nodule within the trachea. Fine subpleural reticulations have developed throughout all five lobes. There is no honeycombing present. No bronchiectasis. Extensive centrilobular micronodules in the mid and upper lung zones. No pulmonary mass or nodule that would suggest neoplasm. Pleura: No pleural effusion or pneumothorax. Heart and mediastinum: No supraclavicular or axillary lymphadenopathy. No mediastinal or hilar lymphadenopathy. Heart is normal in size without pericardial effusion. Moderate coronary artery calcifications are present. Mild ectasia of the ascending aorta measuring up to 3.9 cm is unchanged. Upper abdomen: No acute or concerning abnormality in the upper abdomen. 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 No fracture. IMPRESSION: 1. Imaging features are suggestive of respiratory bronchiolitis with interstitial lung disease. 2. Potential early fibrosis is indeterminate for UIP pattern of interstitial lung disease. Recommend follow-up high-resolution CT chest in 6 months to reassess. Dictated by: Dictated on workstation # [id number]
== END ==
LOC: RAD 14:45
PROVIDERS: ATTEND Nurse Practitioner Family
DX: R05 Cough (principal); R06.02 Shortness of breath
CPT/HCPCS: 71250

== ENCOUNTER → 2021-07-07 | Outpatient (CLI) | payer MEDICARE, OTHER ==
[~2021-07-07] MED LIST changes: +RT-ALBUTEROL SULF 2.5 MG/3 ML PRE-MIX VIAL INH ONE
--- NOTE | 2021-07-07 18:09 | Diagnostic Imaging Report ---
REASON FOR EXAM: Follow-up abnormal CT findings. Possible interstitial lung disease. Possible fibrosis. COMPARISON: 05/02/2021. TECHNIQUE: Thin section high resolution noncontrast-enhanced axial images were obtained through the chest in supine inspiration and expiration and in prone inspiration, as per the department of CT high resolution chest protocol. FINDINGS: The soft tissue windows demonstrate normal heart size. There is no pleural or pericardial effusion. There is calcified aortic and coronary atherosclerotic plaque without aneurysm. No large mediastinal or hilar adenopathy is seen. Inspiration: Subpleural reticular opacities are again seen throughout the lungs, greatest in the lower lobes. There is mild associated bronchiectasis in the bilateral lower lobes. Subpleural cysts are noted in the medial aspect of the right lung base which may represent early honeycombing. Scattered subcentimeter pulmonary nodules are visualized which are stable. No suspicious pulmonary nodules or focal consolidations. No pulmonary mass. Expiration: No evidence for focal air trapping. No overt airway collapse. Limited views of the upper abdomen are unremarkable. The osseous structures are age appropriate. IMPRESSION: 1. Findings suggestive of UIP pattern with subpleural reticular opacities throughout the lungs and possible early honeycombing in the medial aspect of the right lung base. Associated mild bronchiectasis is also seen in the lung bases. Recommend correlation with PFTs and follow-up as indicated. 2. Stable scattered subcentimeter pulmonary nodules in the lungs. No suspicious pulmonary nodules or pulmonary masses. No focal consolidation. Dictated by: Dictated on workstation # [id number]
== END ==
LOC: RT 11:11
PROVIDERS: ATTEND Nurse Practitioner Family
DX: R91.8 Other nonspecific abnormal finding of lung field (principal); R06.00 Dyspnea, unspecified
CPT/HCPCS: 71250; 94060; 94726; 94729

== ENCOUNTER → 2022-01-14 | Outpatient (CLI) | payer MEDICARE, OTHER ==
[~2022-01-14] VITALS: Ht 175 cm; Wt 100.0 kg
[~2022-01-14] MED LIST changes: +CATHETER FLUSH 10 ML SYR IVP PRN; +REGADENOSON 0.4 MG/5 ML SYR (LEXISCAN) IV ONE; -RT-ALBUTEROL SULF 2.5 MG/3 ML PRE-MIX VIAL INH ONE
[2022-01-14 13:41] VITALS: BP 164/84
--- NOTE | 2022-01-14 15:38 | Cardiology Stress Test Report ---
Stress Test Report Date of Procedure/Referring: Date of Procedure: Jan 14, 2022 PCP Basilia Johnston MD Admitting Physician Stephen Peacock MD Indications: HTN Baseline Heart Rate: 58 Baseline Blood Pressure: Blood Pressure Systolic: 164 Blood Pressure Diastolic: 84 Baseline Vitals Vital Signs Date Time Temp Pulse Resp B/P (MAP) Pulse Ox O2 Delivery O2 Flow Rate FiO2 01/14/22 13:41 58 164/84 (110) Baseline EKG: Baseline EKG: RBBB Summary After explaining the procedure to the patient, he signed a consent and then brought to the stress nuclear laboratory. Patient received 0.4 mg Lexiscan for stress test, ECG, heart rate and blood pressure were monitored continuously. Resting and stress dose of radio tracer were injected, imaging was acquired and reviewed in short axis, horizontal long axis and vertical long axis views. TID: 1.0 SSS: 4 SDS: 0 EF: 52 1. Patient tolerated Lexiscan well 2. Diaphragmatic attenuation with fixed defect at the basal to mid inferior wall with no significant ischemia or infarction on SPECT images 3. Normal left ventricular size, EF 52% 4. Baseline right bundle branch block persisted during test Copy Copies To 1: STEPHEN PEACOCK MD, BASHAR J MD Jan 14, 2022 15:37
== END ==
LOC: CARD 12:00
PROVIDERS: ATTEND Internal Medicine Cardiovascular Disease
DX: I10 Essential (primary) hypertension (principal); I25.10 Atherosclerotic heart disease of native coronary artery without angina pectoris; I51.7 Cardiomegaly
CPT/HCPCS: 78452; 93017; 93306; A9502

== ENCOUNTER → 2022-01-20 | Outpatient (CLI) | payer MEDICARE ==
[~2022-01-20] MED LIST changes: -CATHETER FLUSH 10 ML SYR IVP PRN; -REGADENOSON 0.4 MG/5 ML SYR (LEXISCAN) IV ONE
--- NOTE | 2022-01-20 11:46 | Diagnostic Imaging Report ---
INDICATION: Followup of abdominal aortic aneurysm. COMPARISON: 03/21/2021 ultrasound. FINDINGS: There is aneurysmal dilatation of the distal abdominal aorta with atherosclerotic change. The maximal diameter of the distal aorta is 4 cm. The proximal aorta measures 3.4 cm with the mid aorta 3.2 cm. The iliac arteries are obscured by gas. There is antegrade flow with Doppler sampling through the aorta. IMPRESSION: Stable appearing atherosclerotic aneurysm of the distal abdominal aorta measuring 4 cm. Dictated by: Dictated on workstation # [id number]
== END ==
LOC: RAD 09:05
PROVIDERS: ATTEND Physician Assistant
DX: I71.4 Abdominal aortic aneurysm, without rupture (principal)
CPT/HCPCS: 76775